=== PATIENT | female | born 2000 | race Caucasian/White ===

== ENCOUNTER 2019-07-25 16:31 | Emergency (ER) | payer MEDICAID ==
[~2019-07-25] VITALS: Ht 165.1 cm; Wt 110.0 kg
[2019-07-25 16:36] VITALS: BP 151/97
== END 2019-07-25 18:11 | disposition home or self-care (01) ==
LOC: ER 16:32
DX: H57.11 Ocular pain, right eye (principal); T41.295A Adverse effect of other general anesthetics, initial encounter; Y92.219 Unspecified school as the place of occurrence of the external cause
CPT/HCPCS: 99281